=== PATIENT | female | born 1940 | race Hispanic/Latino ===

== ENCOUNTER → 2016-05-13 | Outpatient (CLI) | payer MEDICARE, OTHER | LOC: YCFC.O 08:59 | PROVIDERS: ATTEND Nurse Practitioner Family | DX: E11.9 Type 2 diabetes mellitus without complications (principal); E78.2 Mixed hyperlipidemia ==

== ENCOUNTER → 2016-05-19 | Outpatient (CLI) | payer MEDICARE, OTHER | LOC: YCFC.O 09:16 | PROVIDERS: ATTEND Nurse Practitioner Family | DX: J06.9 Acute upper respiratory infection, unspecified (principal) ==

== ENCOUNTER → 2016-08-14 | Outpatient (CLI) | payer MEDICARE, OTHER | END | disposition home or self-care (01) | LOC: YCFC.O 08:53 | PROVIDERS: ATTEND Nurse Practitioner Family | DX: E78.2 Mixed hyperlipidemia (principal); E11.9 Type 2 diabetes mellitus without complications ==

== ENCOUNTER → 2016-08-18 | Outpatient (CLI) | payer MEDICARE, OTHER | LOC: RESP 13:43 | PROVIDERS: ATTEND Nurse Practitioner Family | DX: R00.1 Bradycardia, unspecified (principal) ==

== ENCOUNTER → 2016-11-11 | Outpatient (CLI) | payer MEDICARE, MEDICAID ==
--- NOTE | 2016-11-11 15:26 | RAD ---
EXAM DESCRIPTION: Hip,Left 2 Views CLINICAL HISTORY: OSTEARTHRITIS COMPARISON: None. IMPRESSION: 2 views of the left hip show no evidence of acute fracture, focal bone destruction, or joint dislocation. Mild joint space narrowing with sclerotic changes to the superior lateral acetabulum are seen is seen with mild osteoarthritic-type changes. Electronically signed by: Guy Valenzuela MD 11/11/2016 3:24 PM CDT
== END ==
LOC: LAB.O 10:12
PROVIDERS: ATTEND Nurse Practitioner Family
DX: E11.9 Type 2 diabetes mellitus without complications (principal); E78.2 Mixed hyperlipidemia; M19.90 Unspecified osteoarthritis, unspecified site

== ENCOUNTER → 2017-07-27 | Outpatient (CLI) | payer MEDICARE, MEDICAID | END | disposition home or self-care (01) | LOC: LAB.O 08:07 | PROVIDERS: ATTEND Nurse Practitioner Family | DX: E78.2 Mixed hyperlipidemia (principal); E11.9 Type 2 diabetes mellitus without complications; N39.0 Urinary tract infection, site not specified ==

== ENCOUNTER → 2018-02-07 | Outpatient (CLI) | payer MEDICARE, MEDICAID | LOC: YCFC.O 10:17 | PROVIDERS: ATTEND Nurse Practitioner Family | DX: E11.9 Type 2 diabetes mellitus without complications (principal); I10 Essential (primary) hypertension; E78.2 Mixed hyperlipidemia ==

== ENCOUNTER → 2018-02-09 | Outpatient (CLI) | payer MEDICARE, MEDICAID ==
--- NOTE | 2018-02-13 12:23 | MAM ---
EXAM DESCRIPTION: 3D Screening BILATERAL : Digital Mammography. CLINICAL HISTORY: 77 years Female SCREEN . No complaints. No personal history or family history of breast cancer. Childbirth. Postmenopausal 39 years. No HRT. Lifetime risk of developing breast cancer (Tyrer-Cuzick model)(%): Not calculated COMPARISON: 2-D digital screening bilateral mammography 10/07/2014. No prior reports available. TECHNIQUE: Bilateral CC and MLO projection full-field images, Digital tomosynthesis mammographic technique. Bilateral digital 2-D full-field MLO images. CAD not utilized. FINDINGS: The breast parenchymal density pattern is: Scattered areas of fibroglandular density. No skin thickening or nipple retraction. Bilateral solitary microcalcifications. Bilateral vascular calcifications. Left breast axillary lymph nodes. 2 regions of focal asymmetry in the left breast anterior third at the 12:00 to 1:00 sectors of the left breast 4 cm and 7 cm from the nipple. Not associated with abnormal microcalcifications. No new focal, stellate mass or density, focal asymmetry , and no suspicious microcalcifications right breast. IMPRESSION: BI-RADS CATEGORY: 0 - INCOMPLETE- Need additional imaging evaluation. FOLLOW-UP: Recall for additional imaging: Targeted left breast ultrasound.. Written communication concerning the IMPRESSION and Follow-up, will be mailed to the patient and referring health care provider. Electronically signed by: Mike Luis MD 02/13/2018 12:21 PM CDT
== END ==
LOC: MAMMO 14:30
PROVIDERS: ATTEND Nurse Practitioner Family
DX: Z12.31 Encounter for screening mammogram for malignant neoplasm of breast (principal)

== ENCOUNTER → 2018-02-17 | Outpatient (CLI) | payer MEDICARE, MEDICAID ==
--- NOTE | 2018-02-17 13:07 | US ---
EXAM DESCRIPTION: Breast,Left: Ultrasound CLINICAL HISTORY: 77 yearsFemaleMAMMOGRAPHY ABNORMAL. Patient primarily [place]-speaking. Daughter was director employee communications. COMPARISON: Digital diagnostic tomosynthesis bilateral breast 02/09/2018. TECHNIQUE: Transcutaneous scanning of the left breast utilizing olguin-scale and Doppler modes. Scanning performed by the radio time sales supervisor and Dr. Luis. FINDINGS: Scanning of the upper left breast anterior third and middle third from the 11:00 to the 1:00 position in the inferior left breast, anterior third and middle third, from the 5:00 to the 7:00 position. Small hyperechoic circumscribed masses measuring 7.6 mm and 10.5 mm at 1:00 and 2:00 positions, 7 cm from the nipple. Minimally vascular. Consistent with lymph nodes. No distinct cyst. No parenchymal edema or large calcifications. No overlying skin changes. No abnormal vascularity. IMPRESSION: Benign exam. BIRAD CATEGORY: 2 BENIGN FINDINGS. RECOMMENDATIONS: FOLLOW UP: Return to routine digital bilateral mammographic screening, one year interval from January 2018. The FINDINGS and the FOLLOW-UP plan were reviewed in person with the patient after the examination. Written communication explaining the IMPRESSION and FOLLOW-UP will be mailed to the patient and referring care provider. According to the [employer], yearly mammograms are recommended starting at age 40 and continuing as long as a woman is in good health. Any breast change noted on a breast self-exam should be reported promptly to the patient's healthcare provider. Breast MRI is recommended for women with an approximately 20-25% or greater lifetime risk of breast cancer, including women with a strong family history of breast or ovarian cancer and women who have been treated for Hodgkin's disease. A negative mammographic report should not delay tissue diagnosis in patients with significant clinical history or physical findings. Extremely dense breast tissue limits the sensitivity of digital mammography. Electronically signed by: Mike Luis MD 02/17/2018 1:05 PM CDT
== END ==
LOC: US 10:30
PROVIDERS: ATTEND Nurse Practitioner Family
DX: R92.8 Other abnormal and inconclusive findings on diagnostic imaging of breast (principal)

== ENCOUNTER → 2018-08-19 | Outpatient (CLI) | payer MEDICARE, MEDICAID | LOC: LAB.O 08:59 | PROVIDERS: ATTEND Nurse Practitioner Family | DX: E11.9 Type 2 diabetes mellitus without complications (principal); I10 Essential (primary) hypertension; E78.2 Mixed hyperlipidemia ==

== ENCOUNTER → 2018-10-09 | Outpatient (CLI) | payer MEDICARE, MEDICAID ==
--- NOTE | 2018-10-10 11:41 | RAD ---
3 radiographs lumbar spine Indication: LOW BACK PAIN Comparison: None. Impression: Mild levocurvature lumbar spine. Severe disc space height loss at L5-S1. Moderate height loss at L4-L5 with trace anterolisthesis. Mild height loss remaining levels. Facet arthrosis L4-L5 and L5-S1. Vertebral body height maintained. No gross fracture. 32 mm ovoid calcification right upper quadrant which could reflect calcification within the gallbladder or the gallbladder wall. Right upper quadrant sonogram recommended for better evaluation. Electronically signed by: Howie Dietz MD 10/10/2018 11:39 AM CDT
== END ==
LOC: RAD 09:44
PROVIDERS: ATTEND Nurse Practitioner Family
DX: M51.37 Other intervertebral disc degeneration, lumbosacral region (principal); M47.897 Other spondylosis, lumbosacral region

== ENCOUNTER → 2018-10-24 | Outpatient (CLI) | payer MEDICARE, MEDICAID ==
--- NOTE | 2018-10-24 11:05 | MRI ---
EXAM DESCRIPTION: Lumbar Spine w/o Contrast : Magnetic Resonance Imaging. CLINICAL HISTORY: DISC DEGENERATION COMPARISON: Radiographs lumbar spine 10/09/2018. TECHNIQUE: Multiplanar, multiple standard sequences, non contrast MRI, lumbar spine. FINDINGS: L5-S1: The disc space is scanned on axial series 501, image 3. Moderate disc space loss and disc desiccation with posterior midline bulge. Schmorl's nodes superior and inferior endplate. Disc spur complex in the midline into the left of midline encroaching on the left foramen and possible left L5 nerve root compromise. Minimal facet hypertrophic arthrosis and thickening of the ligaments posteriorly but no canal stenosis. L4-L5: Minimal disc desiccation but disc spaces maintained. Grade 1 anterolisthesis 2 mm. Posterior ligament thickening and bilateral hypertrophic facet arthrosis. Mild canal narrowing. Bilateral foramina are mildly narrowed. L3-L4: Minimal disc desiccation and disc space preserved. Minimal thickening of the posterior ligaments. Canal and foramina are patent. Circumscribed lesion in the L3 vertebral body minimally hyperintense on T2-weighted and inversion recovery sequences dark on T1 sequences consistent with a cyst. L2-L3: Minimal disc desiccation with disc space preserved. Minimal anterior disc bulging. Posterior elements unremarkable. Canal and foramina are patent. L1-L2: Normal signal in the disc with disc space preserved. Posterior elements unremarkable. Canal and foramina are patent. T12-L1: Disc space preserved. Normal signal in the disc. Posterior elements unremarkable. Canal and foramina are patent. Conus terminates just below the disc space. No scoliosis Paravertebral soft tissues show parapelvic cysts in the kidneys bilaterally and a partially visualized lateral right renal cyst.. Normal marrow signal in the remaining vertebral bodies and the posterior elements. Vertebral bodies are not compressed at any level. IMPRESSION: 1. Moderate spondylosis L5-S1 in the midline into the left of midline with disc spur complex causing left foraminal stenosis and compromise of the exiting left L5 nerve. No canal or right foraminal stenosis. 2. L4-L5 disc desiccation and grade 1 anterolisthesis. No canal or foraminal stenosis. Electronically signed by: Mike Luis MD 10/24/2018 11:04 AM CDT
== END ==
LOC: MRI 08:00
PROVIDERS: ATTEND Nurse Practitioner Family
DX: M51.36 Other intervertebral disc degeneration, lumbar region (principal); M47.897 Other spondylosis, lumbosacral region; M43.16 Spondylolisthesis, lumbar region; M48.062 Spinal stenosis, lumbar region with neurogenic claudication

== ENCOUNTER → 2019-04-14 | Outpatient (CLI) | payer MEDICARE | LOC: LAB.O 09:23 | PROVIDERS: ATTEND Nurse Practitioner | DX: E11.9 Type 2 diabetes mellitus without complications (principal) ==

== ENCOUNTER → 2020-02-02 | Outpatient (CLI) | payer MEDICARE, OTHER | LOC: YCFC.O 09:04 | PROVIDERS: ATTEND Nurse Practitioner Family | DX: E78.5 Hyperlipidemia, unspecified (principal); E11.9 Type 2 diabetes mellitus without complications ==

== ENCOUNTER → 2020-03-27 | Outpatient (CLI) | payer MEDICARE, MEDICAID ==
--- NOTE | 2020-03-27 15:29 | RAD ---
EXAM DESCRIPTION: Chest,2 Views x-ray CLINICAL HISTORY: 79 years Female, COUGH COMPARISON: 05/18/2012 IMPRESSION: Borderline cardiomegaly without failure. Extensive multifocal bilateral peripheral airspace opacities, most consistent with multifocal pneumonia. Findings commonly reported with Covid 19 are present. No pleural effusion or pneumothorax. No acute osseous abnormality. Electronically signed by: Rene Chang MD 03/27/2020 3:27 PM [facility]
== END ==
LOC: YCFC.O 14:36
PROVIDERS: ATTEND Nurse Practitioner Family
DX: Z20.828 Contact with and (suspected) exposure to other viral communicable diseases (principal); R91.8 Other nonspecific abnormal finding of lung field; R05 Cough; R50.9 Fever, unspecified; I51.7 Cardiomegaly

== ENCOUNTER 2020-03-28 09:49 | Outpatient (CLI) | payer MEDICARE, MEDICAID | END 2020-03-28 16:23 | disposition home or self-care (01) | LOC: INFRM 09:49 | PROVIDERS: ATTEND Nurse Practitioner Family | DX: U07.1 COVID-19 (principal); J18.9 Pneumonia, unspecified organism; E11.9 Type 2 diabetes mellitus without complications; I10 Essential (primary) hypertension; Z23 Encounter for immunization ==